=== PATIENT | female | born 1995 | race American Indian/Alaskan Native ===

== ENCOUNTER 2021-12-10 21:27 | Emergency (ER) | payer SELFPAY ==
[2021-12-10 21:33] VITALS: BP 129/93
== END 2021-12-11 11:19 | disposition left against medical advice (07) ==
LOC: ED 21:27
DX: N89.8 Other specified noninflammatory disorders of vagina (principal); Z53.21 Procedure and treatment not carried out due to patient leaving prior to being seen by health care provider